=== PATIENT | male | born 1945 | race Caucasian/White ===

== ENCOUNTER 2017-10-06 06:45 | Outpatient (CLI) | payer OTHER ==
[2017-10-06 07:00] LABS: Calc. Creatinine Clearance 0 mL/min (70-130); Estimated GFR-MDRD Greater than 90
--- NOTE | 2017-10-06 08:35 | CT ---
CT ABDOMEN AND PELVIS WITH AND WITHOUT IV CONTRAST: HISTORY: A 72-year-old male with solid mass in the left kidney seen on recent MRI. The patient also has a his tory of bladder cancer. FINDINGS: Lung conner are unremarkable. Multiple cysts are seen in the liver. No calcified gallstones are noted . There is a tiny low-density lesion in the posteromedial aspect of the spleen. The pancreas and ri ght adrenal gland are normal. There is a 1.7 cm left adrenal nodule with attenuation values consiste nt with benign adenoma on the noncontrasted study. No calculi are seen in the kidneys, ureters, or the urinary bladder. No hydroureteral nephrosis is s een on either side. There are bilateral renal cysts. There are 2 exophytic enhancing masses in the left kidney, one in the left mid kidney measuring 2.4 cm and the other in the posterior aspect of the inferior pole of the left kidney measuring 3.8 cm which demonstrate postcontrast enhancement and is suspicious for malignancy. There is normal contrast excretion into the ureters and the urinary bladd er. No free air, free fluid, or lymphadenopathy is seen in the abdomen or pelvis. A normal-appearing bimal endix is present. There is sigmoid diverticulosis. Degenerative changes are seen in the spine. No destructive bony lesions are seen. IMPRESSION: 1. Two enhancing left renal masses suspicious for malignancy/renal cell carcinomas. 2. Bilateral renal cysts. 3. Hepatic cysts. 4. Left adrenal adenoma. 5. Sigmoid diverticulosis. POS: [facility]
[2017-10-06] MEDS ORDERED: Iopamidol 370 76% 100 ML VIAL ONE (09:52)
== END 2017-10-06 06:46 | disposition home or self-care (01) ==
LOC: MADLAB 06:45
PROVIDERS: ATTEND Urology
DX: C67.9 Malignant neoplasm of bladder, unspecified (principal); N20.0 Calculus of kidney; R35.0 Frequency of micturition; R39.15 Urgency of urination; N28.1 Cyst of kidney, acquired; K76.89 Other specified diseases of liver; K57.30 Diverticulosis of large intestine without perforation or abscess without bleeding; D35.02 Benign neoplasm of left adrenal gland
CPT/HCPCS: 36415; 74178; 82565

== ENCOUNTER 2017-10-25 04:45 | Outpatient (CLI) | payer OTHER ==
--- NOTE | 2017-10-25 09:21 | RAD ---
CHEST TWO VIEWS: History: Pre op. Comparison: 09-04-13 FINDINGS: Cardiac silhouette and pulmonary vasculature are unremarkable. Mediastinum is midline. No confluent a irspace consolidation, pneumothorax or pleural fluid are apparent. IMPRESSION: No active cardiopulmonary abnormalities were demonstrated. POS: [facility]
== END 2017-10-25 04:46 | disposition home or self-care (01) ==
LOC: MADRAD 04:45
PROVIDERS: ATTEND Family Medicine
DX: Z01.810 Encounter for preprocedural cardiovascular examination (principal)
CPT/HCPCS: 71046

== ENCOUNTER 2018-01-02 06:21 | Emergency (ER) | payer OTHER, MEDICARE ==
[2018-01-02 06:49] LABS: #Basophils 0.1 thou/uL (0.0-0.2); #Eosinphils 0.4 thou/uL (0.0-0.7); #Lymphocytes 1.3 thou/uL (1.20-3.40); #Monocytes 0.8 thou/uL (0.11-0.59); #Neutrophils 5.8 thou/uL (1.40-6.50); %Basophils 1.6 % (0.0-1.0); %Lymphocytes 15.4 % (21.0-51.0); %Monocytes 9.2 % (0.0-10.0); %Neutrophils 68.8 % (42.0-75.0); Hemoglobin 9.7 g/dL (14.0-18.0); Mean Corpuscular HGB CONC 34.3 g/dL (32.0-36.0); Mean Corpuscular Hemoglobin 31.3 pg (27.0-31.0); Mean Corpuscular Volume 91.2 fL (78.0-98.0); Mean Platelet Volume 6.6 fL (7.4-10.4); Platelet Count 382 thou/uL (130-400); RBC Distribution Width 11.1 % (11.5-14.5); Red Blood Cell (RBC) Count 3.12 mill/uL (4.70-6.10); White Blood Cell (WBC) Count 8.5 thou/uL (4.8-10.8)
[2018-01-02 07:03] LABS: Anion Gap 14 mmol/L (10-20); BUN (Urea Nitrogen) 20 mg/dL (8.4-25.7); Calc. Creatinine Clearance 0 mL/min (70-130); Calcium 9.9 mg/dL (7.8-10.44); Carbon Dioxide 25 mmol/L (23-31); Chloride 104 mmol/L (98-107); Estimated GFR-MDRD 68; Glucose 134 mg/dL (83-110); Potassium 3.7 mmol/L (3.5-5.1); Sodium 139 mmol/L (136-145)
[2018-01-02 07:06] LABS: CKMB 1.5 ng/mL (0-6.6)
[2018-01-02 07:25] LABS: Blood, Urine Large (Negative); Protein, Urine (Dipstick) > or equal to 300 mg/dL (Neg-Trace); Specific Gravity, Urine 1.015 (1.005-1.030); pH, Urine 8.5 (5.0-9.0)
[2018-01-02 07:27] LABS: Clarity Cloudy (Clear); Leukocyte Unable to Interpret (Negative)
[2018-01-02 07:28] LABS: Bilirubin Unable to Interpret (Negative); Glucose, Urine (Dipstick) Unable to Interpret mg/dL (Negative); Nitrite Unable to Interpret (Negative); Urobilinogen UNABLE TO INTERPRET mg/dL (0.2-1.0)
[2018-01-02 07:29] LABS: Bacteria/HPF Rare-Few HPF (None Seen); RBC/HPF GREATER THAN 50-TNTC HPF (0-3); Squamous Epithelial 0-3 HPF (0-3)
--- NOTE | 2018-01-02 08:09 | CT ---
CT ANGIOGRAM ABDOMEN WITH 3D RENDERING: HISTORY: A 72-year-old male with gross hematuria. History of recent renal cell carcinoma of the left kidney w ith resection about 3 weeks ago. Readmitted last week with blood clots with progressive hematuria. COMPARISON: 12/26/[address] FINDINGS: The lung bases are clear of acute process. Multiple stable liver cysts and renal cysts. Small stabl e left adrenal mass. Worsening and enlarging left perirenal hematoma/seroma now measuring 3.8 cm in thickness and approximately 8.5 cm in anterior posterior dimension. There is an intrarenal pseudoane urysm now measuring 2 x 2.1 x 2.6 cm in size. The pseudoaneurysm was not visualized at the time of t he prior study. Atherosclerosis of the aorta with minimal ectasia, but no evidence for an aortic ane urysm. There are progressive hemorrhagic changes extending into the left retroperitoneum, including the left iliacus and left psoas muscles and paramuscular regions and extending down into the upper le ft pelvis. There is evidence for higher density filling defects within the left renal pelvis and uri nary bladder when compared to the prior study, evidence for blood in the collecting system on the lef t side. There is no evidence of active contrast extravasation. No significant free intraperitoneal blood. 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 No evidence of active contrast extravasation. More blood clot within the urinary bladder and left upper collecting system which is mildly dilated, somewhat more so than on the prior study. Findings were discussed with Dr. Wood in the emergency room at 7:50 a.m. CODE CR POS: [facility]
[2018-01-02] MEDS ORDERED: Sodium Chloride 0.9% 1,000 ML BAG ONE (10:42)
[2018-01-02] MEDS ORDERED: Iopamidol 370 76% 125 ML VIAL FS ONE (12:25)
[2018-01-02] MEDS ORDERED: Sodium Chloride 0.9% 100 ML BAG ONE (12:25)
== END 2018-01-02 08:32 | disposition short-term general hospital (02) ==
LOC: MADERS 06:21
DX: I72.2 Aneurysm of renal artery (principal); R31.0 Gross hematuria; I10 Essential (primary) hypertension
CPT/HCPCS: 36415; 51702; 74174; 80048; 81003; 81015; 82553; 84484; 85025; 86900; 86901; 93005; 96360; J7050

== ENCOUNTER 2018-02-16 08:00 | Outpatient (CLI) | payer OTHER, MEDICARE ==
[2018-02-16 08:51] LABS: #Basophils 0.1 thou/uL (0.0-0.2); #Eosinphils 0.4 thou/uL (0.0-0.7); #Lymphocytes 1.1 thou/uL (1.20-3.40); #Monocytes 0.4 thou/uL (0.11-0.59); #Neutrophils 3.3 thou/uL (1.40-6.50); %Basophils 1.5 % (0.0-1.0); %Eosinophils 7.3 % (0.0-10.0); %Lymphocytes 21.2 % (21.0-51.0); %Monocytes 8.4 % (0.0-10.0); %Neutrophils 61.6 % (42.0-75.0); Hemoglobin 11.5 g/dL (14.0-18.0); Mean Corpuscular HGB CONC 34.2 g/dL (32.0-36.0); Mean Corpuscular Hemoglobin 30.5 pg (27.0-31.0); Mean Corpuscular Volume 89.2 fL (78.0-98.0); Platelet Count 213 thou/uL (130-400); RBC Distribution Width 12.4 % (11.5-14.5); Red Blood Cell (RBC) Count 3.76 mill/uL (4.70-6.10); White Blood Cell (WBC) Count 5.3 thou/uL (4.8-10.8)
== END 2018-02-16 08:01 | disposition home or self-care (01) ==
LOC: MADLAB 08:00
PROVIDERS: ATTEND Urology
DX: C64.2 Malignant neoplasm of left kidney, except renal pelvis (principal); N28.89 Other specified disorders of kidney and ureter
CPT/HCPCS: 36415; 85025

== ENCOUNTER 2019-02-12 06:50 | Outpatient (CLI) | payer OTHER ==
[2019-02-12 07:25] LABS: ALT (SGPT) 18 U/L (8-55); AST (SGOT) 16 U/L (5-34); Albumin 4.7 g/dL (3.4-4.8); Alkaline Phosphatase 90 U/L (40-110); Anion Gap 14 mmol/L (10-20); BUN (Urea Nitrogen) 16 mg/dL (8.4-25.7); Bilirubin, Total 0.9 mg/dL (0.2-1.2); Calc. Creatinine Clearance 0 mL/min (70-130); Calcium 10.1 mg/dL (7.8-10.44); Carbon Dioxide 27 mmol/L (23-31); Chloride 106 mmol/L (98-107); Estimated GFR-MDRD 61; Globulin 2.5 g/dL (2.4-3.5); Glucose 104 mg/dL (83-110); Potassium 3.9 mmol/L (3.5-5.1); Protein, Total 7.2 g/dL (5.8-8.1); Sodium 143 mmol/L (136-145)
--- NOTE | 2019-02-12 07:53 | RAD ---
TWO VIEWS CHEST: DATE: 02/12/2019. PROVIDED CLINICAL HISTORY: History of renal cell carcinoma. FINDINGS: Comparison is made with the study dated 10/25/2017. Cardiac and mediastinal silhouette is unchanged in appearance. Vascular calcification is noted. No focal consolidation, pleural fluid, or pneumothora x apparent. IMPRESSION: Stable radiographic appearance of the chest. POS: [facility]
[2019-02-12] MEDS ORDERED: Iopamidol 370 76% 100 ML VIAL ONE (09:33)
--- NOTE | 2019-02-12 10:07 | CT ---
ABDOMEN CT WITH AND WITHOUT CONTRAST PELVIC CT WITH AND WITHOUT CONTRAST: COMPARISON: 01/05/2018, 12/26/2017, 10/06/2017. FINDINGS: ABDOMEN CT: Lung bases are clear. Normal heart size. No significant pericardial fluid. The descending thoracic aorta and abdominal aorta demonstrate stable atherosclerosis. Stable hypodensities in the liver, suggesting multifocal hepatic cysts. Gallbladder is unremarkable. The portal vein is patent. No gastrohepatic, retrocrural, or periportal lymphadenopathy. No mesenteric mass, lymphadenopathy, free air, or free fluid. Limited evaluation of the alimentary canal by the lack of oral contrast. Gastric mucosa, duodenum, a nd multiple normal-caliber small bowel loops are identified. Ileocecal junction is normal. Normal c aliber appendix. Scattered fecal material in a nondistended, nondilated colon. Occasional diverticu lum. No diverticulitis. There is evidence of hyperdensity along the lateral margin of the left kidney, unchanged from the pre vious examination and is presumed to be postsurgical change. Previously noted left perinephric hemat yomi has significantly decreased in size. Residual linear densities may represent scar. Embolic coil mass is noted in the left renal hilum. On the noncontrast images, there is no evidence of renal michael culi. On the arterial phase images, there is no evidence of abnormal enhancement. Rather, there is symmetric enhancement of the kidneys. The excretory phase demonstrates symmetric excretion into a no ndistended, nondilated left and right intrarenal and extrarenal collecting system. There are multipl e hypodensities involving the right renal cortex compatible with a right renal cortical cyst, unchang ed. CT PELVIS: No mass, lymphadenopathy, free air, or free fluid. Limited evaluation of the urinary bladder which a ppears to be grossly unremarkable. Note, neither ureter is completely opacified. Nevertheless, no o bvious calcification along the course of either ureter. No pelvic mass, lymphadenopathy, free air, or free fluid. Thee is stable degenerative change and scoliosis of the visualized spine. IMPRESSION: Findings compatible with the previous removal of 2 separate solid masses in the left kidney. There d oes not appear to be evidence of recurrent or residual disease. POS: [facility]
== END 2019-02-12 06:51 | disposition home or self-care (01) ==
LOC: MADLAB 06:50
PROVIDERS: ATTEND Urology
DX: C64.2 Malignant neoplasm of left kidney, except renal pelvis (principal)
CPT/HCPCS: 36415; 71046; 74178; 80053; Q9967

== ENCOUNTER 2020-02-20 07:16 | Outpatient (CLI) | payer OTHER, MEDICARE ==
[2020-02-20 08:03] LABS: ALT (SGPT) 21 U/L (8-55); AST (SGOT) 16 U/L (5-34); Albumin 4.4 g/dL (3.4-4.8); Alkaline Phosphatase 75 U/L (40-110); Anion Gap 13 mmol/L (10-20); BUN (Urea Nitrogen) 20 mg/dL (8.4-25.7); Bilirubin, Total 0.8 mg/dL (0.2-1.2); Calc. Creatinine Clearance 0 mL/min (70-130); Calcium 9.2 mg/dL (7.8-10.44); Carbon Dioxide 28 mmol/L (23-31); Cardiac Risk 3.3 (Less than 4.5); Chloride 106 mmol/L (98-107); Cholesterol 170 mg/dl (< 200 Desired); Estimated GFR-MDRD 63; Globulin 2.5 g/dL (2.4-3.5); Glucose 103 mg/dL (83-110); HDL Cholesterol 51 mg/dL (>60 Neg Risk); LDL Cholesterol, Calculated 102 mg/dL; Potassium 3.7 mmol/L (3.5-5.1); Protein, Total 6.9 g/dL (5.8-8.1); Sodium 143 mmol/L (136-145); Triglycerides 86 mg/dL (Less than 150)
[2020-02-20 08:07] LABS: #Basophils 0.1 thou/uL (0.0-0.2); #Eosinphils 0.3 thou/uL (0.0-0.7); #Monocytes 0.5 thou/uL (0.11-0.59); #Neutrophils 3.4 thou/uL (1.40-6.50); %Basophils 1.4 % (0.0-1.0); %Eosinophils 5.1 % (0.0-10.0); %Lymphocytes 19.1 % (21.0-51.0); %Monocytes 8.6 % (0.0-10.0); %Neutrophils 65.8 % (42.0-75.0); Hemoglobin 14.8 g/dL (14.0-18.0); Mean Corpuscular HGB CONC 33.5 g/dL (32.0-36.0); Mean Corpuscular Volume 92.4 fL (78.0-98.0); Mean Platelet Volume 8.9 fL (7.4-10.4); Platelet Count 192 thou/uL (130-400); RBC Distribution Width 12.1 % (11.5-14.5); Red Blood Cell (RBC) Count 4.77 mill/uL (4.70-6.10); White Blood Cell (WBC) Count 5.2 thou/uL (4.8-10.8)
[2020-02-20 11:49] LABS: Hemoglobin A1c 5.3 % (4.0-6.0)
[2020-02-20 11:59] LABS: PSA-Asymptomatic (SCREENING) 0.3 ng/mL (0-4.0)
== END 2020-02-20 07:17 | disposition home or self-care (01) ==
LOC: MADLAB 07:16
PROVIDERS: ATTEND Family Medicine
DX: Z00.00 Encounter for general adult medical examination without abnormal findings (principal); E03.9 Hypothyroidism, unspecified; I10 Essential (primary) hypertension
CPT/HCPCS: 36415; 80050; 80061; 82607; 83036; 93005; 93010; G0103

== ENCOUNTER 2023-06-29 11:01 | Outpatient (CLI) | payer BC, MEDICARE | END 2023-06-29 11:02 | disposition home or self-care (01) | LOC: MADEKG 11:01 | PROVIDERS: ATTEND Family Medicine | DX: I48.91 Unspecified atrial fibrillation (principal) | CPT/HCPCS: 93005; 93010 ==